=== PATIENT | female | born 1965 | race African-American/Black ===

== ENCOUNTER 2022-05-09 14:03 | Observation (INO) | payer SELFPAY ==
[~2022-05-09] VITALS: Ht 165.1 cm; Wt 93.0 kg
[2022-05-09] MEDS ORDERED: ASPIRIN 325 MG TAB PO ONE (14:30)
[2022-05-09] MEDS ORDERED: LABETALOL HCL 5 MG/ML 20ML VIAL IV STA (14:30)
[2022-05-09 14:49] LABS: BASOPHILS # (AUTO) 0.1 (0.0-0.1); BASOPHILS % 0.9 % (0.0-1.0); EOSINOPHILS # (AUTO) 0.3 (0.0-0.4); EOSINOPHILS % 2.7 % (0.0-6.0); HEMATOCRIT 40.5 % (34.2-44.1); HEMOGLOBIN 12.8 g/dL (12.0-16.0); LYMPHOCYTES # (AUTO) 2.9 (1.0-3.2); LYMPHOCYTES % 31.4 % (18.0-39.1); MEAN CORPUSCULAR HEMOGLOBIN 30.8 pg (28-32); MEAN CORPUSCULAR HGB CONC 31.6 g/dL (31-35); MEAN CORPUSCULAR VOLUME 97.6 fL (81-99); MONOCYTES # (AUTO) 0.6 (0.2-0.8); MONOCYTES % 6.3 % (4.4-11.3); NEUTROPHILS # (AUTO) 5.5 (2.1-6.9); NEUTROPHILS % 58.6 % (38.7-80.0); PLATELET COUNT 351 x10e3/uL (140-360); RED BLOOD COUNT 4.15 x10e6/uL (3.6-5.1); RED CELL DISTRIBUTION WIDTH 12.6 % (11.7-14.4)
[2022-05-09 15:10] LABS: ALBUMIN 3.5 g/dL (3.5-5.0); ALBUMIN/GLOBULIN RATIO 0.7 (0.8-2.0); ANION GAP 15.6 mmol/L (8-16); CALCIUM 9.1 mg/dL (8.4-10.2); CREATININE, SERUM 1.05 mg/dL (0.57-1.11); POTASSIUM 3.6 mmol/L (3.5-5.1)
[2022-05-09] MEDS ORDERED: SODIUM CHLORIDE FLUSH 10 ML SYR INJ PRN (16:30)
[2022-05-09] MEDS ORDERED: HYDRALAZINE HCL 20 MG/ML VIAL IV PRN (16:30)
[2022-05-09] MEDS ORDERED: ASPIRIN 81 MG CHEW TAB PO ONE (16:30)
[2022-05-09] MEDS ORDERED: ONDANSETRON HCL INJ 2MG/ML 2ML 2 MG/ML VIAL IV PRN (16:30)
[2022-05-09 18:15] VITALS: BP 155/74
[2022-05-09 19:40] VITALS: BP 155/74
[2022-05-09] MEDS ORDERED: LOSARTAN POTASSIUM 25 MG TAB PO SCH (20:00)
[2022-05-09] MEDS ORDERED: DEXTROSE 50% SYRINGE 50 ML IV PRN (20:00)
[2022-05-09] MEDS ORDERED: ACETAMINOPHEN 325 MG TAB PO PRN (20:00)
[2022-05-09] MEDS ORDERED: LABETALOL HCL 5 MG/ML 20ML VIAL IV PRN (20:00)
[2022-05-09 20:07] VITALS: BP 159/90
[2022-05-09] MEDS: INSULIN LISPRO 100 UNIT/1 ML 3ML VIAL SQ SCH (20:20)
[2022-05-09] MEDS: ALBUTEROL/IPRATROPIUM 3 ML NEB NEB PRN (20:30)
[2022-05-09] MEDS ORDERED: LOSARTAN POTASSIUM 25 MG TAB PO ONE (20:30)
[2022-05-09] MEDS ORDERED: ALBUTEROL/IPRATROPIUM 3 ML NEB ONE (20:37)
[2022-05-09] MEDS: FUROSEMIDE INJ 10 MG/ML 4 ML VIAL IV SCH (20:44)
[2022-05-09] MEDS: PREDNISONE 20 MG TAB PO SCH (20:46)
[2022-05-09] MEDS: CARVEDILOL 3.125 MG TAB PO SCH (20:46)
[2022-05-09] MEDS ORDERED: ATORVASTATIN 40 MG TAB PO SCH (21:00)
[2022-05-09] MEDS ORDERED: CRESTOR 10MG PO SCH (21:00)
[2022-05-09 21:13] VITALS: BP 159/90
[2022-05-10] VITALS (7 sets, daily range): BP systolic 143–180; BP diastolic 76–91
[2022-05-10 00:28] LABS: CREATINE KINASE 76 IU/L (29-168)
[2022-05-10] MEDS: ALBUTEROL/IPRATROPIUM 3 ML NEB NEB PRN (05:20)
[2022-05-10 05:55] LABS: BASOPHILS % 0.5 % (0.0-1.0); EOSINOPHILS % 0.2 % (0.0-6.0); HEMOGLOBIN 12.6 g/dL (12.0-16.0); LYMPHOCYTES # (AUTO) 1.3 (1.0-3.2); MEAN CORPUSCULAR HEMOGLOBIN 30.7 pg (28-32); MEAN CORPUSCULAR HGB CONC 31.5 g/dL (31-35); MEAN CORPUSCULAR VOLUME 97.6 fL (81-99); MONOCYTES # (AUTO) 0.1 (0.2-0.8); MONOCYTES % 1.9 % (4.4-11.3); NEUTROPHILS % 77.1 % (38.7-80.0); PLATELET COUNT 321 x10e3/uL (140-360); RED CELL DISTRIBUTION WIDTH 12.5 % (11.7-14.4)
[2022-05-10 06:22] LABS: ALBUMIN 3.3 g/dL (3.5-5.0); ALBUMIN/GLOBULIN RATIO 0.7 (0.8-2.0); ANION GAP 16.3 mmol/L (8-16); CALCIUM 9.1 mg/dL (8.4-10.2); CHOL/HDL RATIO 5.5 (3.0-3.6); CREATININE, SERUM 1.15 mg/dL (0.57-1.11); MAGNESIUM 1.9 MG/DL (1.3-2.1); POTASSIUM 4.3 mmol/L (3.5-5.1)
[2022-05-10] MEDS: INSULIN LISPRO 100 UNIT/1 ML 3ML VIAL SQ SCH (07:30)
[2022-05-10] MEDS ORDERED: LOSARTAN POTASSIUM 100 MG TAB PO SCH (09:00)
[2022-05-10] MEDS ORDERED: CLOPIDOGREL BISULFATE 75 MG TAB PO SCH (09:00)
[2022-05-10] MEDS ORDERED: NICOTINE 7 MG PATCH TOP SCH (09:00)
[2022-05-10] MEDS ORDERED: SENNOSIDES 8.6 MG TAB PO SCH (09:00)
[2022-05-10] MEDS ORDERED: ASPIRIN 81 MG CHEW TAB PO SCH (09:00)
[2022-05-10] MEDS ORDERED: DOCUSATE SODIUM 100 MG CAP PO SCH (09:00)
[2022-05-10] MEDS: FUROSEMIDE INJ 10 MG/ML 4 ML VIAL IV SCH (09:15)
[2022-05-10] MEDS: CARVEDILOL 3.125 MG TAB PO SCH (09:16)
[2022-05-10] MEDS: PREDNISONE 20 MG TAB PO SCH (09:17)
[2022-05-10] MEDS ORDERED: HYDROCHLOROTHIAZIDE 25 MG TAB PO SCH (09:45)
[2022-05-10] MEDS ORDERED: CARVEDILOL 12.5 MG TAB PO SCH ×3 (10:00→17:00)
[2022-05-10] MEDS ORDERED: LASIX40 MG PO (10:10)
[2022-05-10] MEDS ORDERED: Atorvastatin PO (10:10)
[2022-05-10] MEDS ORDERED: POTASSIUM CHLO10 ME1 PO (10:10)
[2022-05-10] MEDS ORDERED: ESIDRIX25 MG PO ×2 (10:10→16:01)
[2022-05-10] MEDS ORDERED: PLAVIX75 MG PO (10:10)
[2022-05-10] MEDS ORDERED: ASPIRIN CHEW81 MG PO (10:10)
[2022-05-10] MEDS ORDERED: PROVENTIL HFA6.7 GM INH (10:10)
[2022-05-10] MEDS ORDERED: PREDNISONE20 MG PO (10:10)
[2022-05-10] MEDS ORDERED: COREG12.5 MG PO (10:10)
[2022-05-10 10:30] LABS: CREATINE KINASE 66 IU/L (29-168)
[2022-05-10] MEDS: HYDROCHLOROTHIAZIDE 25 MG TAB PO SCH ×2 (12:00→12:16)
[2022-05-10 12:29] LABS: THYROID STIMULATING HORMONE 0.509 uIU/mL (0.350-4.940)
[2022-05-10] MEDS ORDERED: LOSARTAN POTAS100 MG PO (16:01)
[2022-05-10] MEDS ORDERED: ENOXAPARIN SOD INJ 40 MG/0.4 ML SYR SC SCH (17:00)
[2022-05-10] MEDS ORDERED: ONDANSETRON HCL 4 MG ORAL DISINTEGRATING TAB PO PRN (17:15)
[2022-05-11] MEDS ORDERED: FUROSEMIDE 40 MG TAB PO SCH (09:00)
== END 2022-05-10 17:30 | disposition home or self-care (01) ==
LOC: ER 14:20 → ERHOLD 16:19 → MED/SURG3 17:35
PROVIDERS: ADMIT Internal Medicine; ATTEND Internal Medicine
DX: I16.0 Hypertensive urgency (principal); J45.901 Unspecified asthma with (acute) exacerbation; R07.9 Chest pain, unspecified; I11.0 Hypertensive heart disease with heart failure; I50.9 Heart failure, unspecified; I25.10 Atherosclerotic heart disease of native coronary artery without angina pectoris; F17.200 Nicotine dependence, unspecified, uncomplicated; T46.5X6A Underdosing of other antihypertensive drugs, initial encounter; T44.7X6A Underdosing of beta-adrenoreceptor antagonists, initial encounter; Z95.5 Presence of coronary angioplasty implant and graft; E66.9 Obesity, unspecified; Z68.34 Body mass index [BMI] 34.0-34.9, adult; Z88.5 Allergy status to narcotic agent; Z20.822 Contact with and (suspected) exposure to COVID-19
CPT/HCPCS: 36415 ×2; 71045; 80053 ×2; 80061; 82550; 82553; 82948 ×2; 83036; 83735; 83880; 84443; 84484 ×2; 85025 ×2; 93005 ×2; 93306; 94640 ×2; 94799 ×2; 99284; G0378 ×2; J1650; J1940 ×2; J3490 ×2; J7512 ×2; U0002